=== PATIENT | female | born 1995 | race Hispanic/Latino ===

== ENCOUNTER 2022-01-03 10:44 | Outpatient (CLI) | payer BC, SELFPAY ==
[2022-01-03 11:24] LABS: Basophils Percent Auto 0.5 % (0.2-1.2); Eosinophils Absolute Auto 0.1 K/mm3 (0-0.3); Eosinophils Percent Auto 1.6 % (0-4.4); Hematocrit 37.3 % (37.0-47.0); Hemoglobin 12.2 g/dL (12.0-15.0); Immature Granulocyte Absolute 0.03 K/mm3 (0.00-0.031); Immature Granulocyte Percent A 0.3 % (0-0.5); Lymphocytes Absolute Auto 2.37 K/mm3 (0.9-3.2); Lymphocytes Percent Auto 27.1 % (18.3-44.2); Mean Corpuscular HGB Conc 32.7 g/dl (32-36); Mean Corpuscular Hemoglobin 25.2 pg (26-34); Mean Corpuscular Volume 77.1 fl (80-100); Monocytes Absolute Auto 0.7 K/mm3 (0.1-0.6); Neutrophils Absolute Auto 5.5 K/mm3 (1.3-6.7); Neutrophils Percent Auto 62.5 % (45.5-73.1); Platelet Count Result 322 k/mm3 (150-375); Red Blood Count 4.84 M/mm3 (4.2-5.4); Red Cell Distribution Width 14.6 % (11.5-14.5); White Blood Count 8.7 K/mm3 (4.5-10.0)
[2022-01-03 12:29] LABS: Hepatitis B Surface Antigen Negative (Negative); Rubella IgG Antibody 2.8 IU/ML
[2022-01-03 12:45] LABS: Hepatitis C Virus Antibody Negative (Negative)
[2022-01-04 12:07] LABS: Rapid Plasma Reagin Non-Reactive (NonReactive)
[2022-01-06 21:45] LABS: Varicella IgG Antibody <135.00 Index (>=165.00)
[2022-01-09 09:39] LABS: Hemoglobin 12.3 g/dL (11.7-15.5); MCH 24.8 pg (27.0-33.0); MCV 80.6 fL (80.0-100.0); RDW 14.7 % (11.0-15.0); Red Blood Cell Count 4.96 Mill/uL (3.80-5.10)
[2022-01-12 16:47] LABS: CF Result NEGATIVE (NEGATIVE); Ethnicity NG
== END 2022-01-03 10:45 | disposition home or self-care (01) ==
LOC: ANHLAB 10:46
PROVIDERS: Visit Provider Student in an Organized Health Care Education/Training Program
DX: Z34.90 Encounter for supervision of normal pregnancy, unspecified, unspecified trimester (principal)
CPT/HCPCS: 36415; 81220; 81243; 83021; 84443; 85025; 86592; 86762; 86787; 86803; 86900; 86901; 87086; 87088; 87340

== ENCOUNTER 2022-02-01 10:39 | Outpatient (CLI) | payer BC, SELFPAY ==
[2022-02-01 11:44] LABS: Vitamin D 25 Hydroxy 32.6 ng/mL
[2022-02-01 12:06] LABS: HIV 1/2 Ab P24 Ag Result Negative (Negative)
== END 2022-02-01 10:40 | disposition home or self-care (01) ==
LOC: ANHLAB 10:42
PROVIDERS: Visit Provider Student in an Organized Health Care Education/Training Program
DX: Z34.90 Encounter for supervision of normal pregnancy, unspecified, unspecified trimester (principal)
CPT/HCPCS: 36415; 82306; 86703; 86850; G0432